=== PATIENT | male | born 1950 | race Caucasian/White ===

== ENCOUNTER 2017-05-27 03:27 | Observation (INO) | payer OTHER ==
[2017-05-27] MEDS ORDERED: ONDANSETRON 4 MG/2 ML VIAL IVP ONE ×2 (03:34→03:47)
[2017-05-27] MEDS ORDERED: NS 1,000 ML IV ONE (03:40)
--- NOTE | 2017-05-27 03:40 | EDPHY ---
H & P Stated Complaint: abd pain onset 23:00 yesterday, n/v HPI/ROS: HPI CHIEF COMPLAINT: Abdominal pain HISTORY OF PRESENT ILLNESS: This patient is a very pleasant 67-year-old male, takes cholesterol medication, he presents emergency room with abdominal pain. He states around 11:00 p.m. and midnight he developed some left-sided back pain that radiates down to his left flank. Into his left lower quadrant region. He had so she had nausea with no vomiting. Denies fever. Denies chest pain or shortness of breath. Pain is rather constant located in the left lower quadrant. At times it comes from the flank. It waxes and wanes. Describes somewhat sharp. Denies any urinary symptoms. Past Medical History: Hyperlipidemia. Past Surgical History: Denies any recent surgery Social History: Denies daily use drugs alcohol tobacco products. Family History: Noncontributory. ROS REVIEW OF SYSTEMS: A comprehensive 10 point review of systems is otherwise negative aside from elements mentioned in the history of present illness. Exam Constitutional appears well nontoxic, triage nursing summary reviewed, vital signs reviewed, awake/alert. Noted to be hypertensive at triage. Eyes normal conjunctivae and sclera, EOMI, PERRLA. HENT normal inspection, atraumatic, moist mucus membranes, no epistaxis, neck supple/ no meningismus, no raccoon eyes. Respiratory clear to auscultation bilaterally, normal breath sounds, no respiratory distress, no wheezing. Cardiovascular rate normal, regular rhythm, no murmur, no edema, distal pulses normal. Gastrointestinal protuberant abdomen, soft, tender palpation focally left lower quadrant, no rebound, no guarding, normal bowel sounds, no distension, no pulsatile mass. Genitourinary no CVA tenderness. Musculoskeletal no midline vertebral tenderness, full range of motion, no calf swelling, no tenderness of extremities, no meningismus, good pulses, neurovascularly intact. Skin pink, warm, & dry, no rash, skin atraumatic. Neurologic awake, alert and oriented x 3, AAOx3, moves all 4 extremities equally, motor intact, sensory intact, CN II-XII intact, normal cerebellar, normal vision, normal speech. Psychiatric normal mood/affect. Heme/Lymph/Immune no lymphadenopathy. Differential diagnosis includes but is not limited to and in no particular order : Bowel obstruction, appendicitis, gallbladder disease, diverticulitis, colitis , enteritis, perforated viscus, gastritis, GERD, esophagitis, urinary tract infection, pyelonephritis, kidney stones Medical Decision Making: Plan for this patient IV establishment, with IV fluid bolus, Dilaudid 1 mg for pain control, IV Zofran for nausea, abdominal blood work including lactic acid, CT scan abdomen pelvis with IV contrast to help delineate acute left lower quadrant abdominal pain. It is possible this is stone versus colitis versus diverticulitis. No pulsatile mass or bruit on exam. Doubt ruptured AAA. Re-evaluation: ED CT scan abdomen pelvis with IV contrast this shows a 7 mm obstructing stone at the L3. Hydronephrosis present. 0512: Patient does ongoing left flank pain. He does not feel comfortable going home. Given how big is stone is with hydronephrosis obstructing is ureter will be admitted to the hospitalist service for obstructing left-sided kidney stone. He does not feel comfortable going home. Will admit to the medicine service. 0535: Dr. Agee with Urology consult. Recommends and p.o.. They will see and evaluate the patient. Source: Patient - Personal History Current Tetanus/Diphtheria Vaccine: Yes - Medical/Surgical History Hx Asthma: No Hx Chronic Respiratory Disease: No Hx Diabetes: No Hx Cardiac Disease: No Hx Renal Disease: No Hx Cirrhosis: No Hx Alcoholism: No Hx HIV/AIDS: No Hx Splenectomy or Spleen Trauma: No Other PMH: PMHx: high cholesterol, arthritis. PSHx: denies - Social History Smoking Status: Never smoked Constitutional: Initial Vital Signs Temperature (C) 36.5 C 05/27/17 03:29 Heart Rate 70 05/27/17 03:29 Respiratory Rate 17 05/27/17 03:29 Blood Pressure 209/113 H 05/27/17 03:29 O2 Sat (%) 94 05/27/17 03:29 O2 Delivery Mode Room Air O2 (L/minute) 2 Allergies/Adverse Reactions: No Known Allergies Allergy (Unverified 05/27/17 03:29) Home Medications: Medication Instructions Recorded Crestor 05/27/17 Medical Decision Making - Data Points Laboratory Results: Laboratory Results 05/27/17 03:50 05/27/17 03:50 05/27/17 05/27/17 05/27/17 04:30 03:50 03:50 WBC RBC Hgb Hct MCV MCH MCHC RDW Plt Count MPV Neut % (Auto) Lymph % (Auto) [place] % (Auto) Eos % (Auto) Baso % (Auto) Nucleat RBC Rel Count Absolute Neuts (auto) Absolute Lymphs (auto) Absolute Monos (auto) Absolute Eos (auto) Absolute Basos (auto) Absolute Nucleated RBC Immature Gran % Immature Gran # PT 12.8 SEC SEC (12.0-15.0) INR 0.97 (0.83-1.16) APTT 24.6 SEC SEC (23.0-38.0) VBG Lactic Acid 1.5 mmol/L mmol/L (0.7-2.1) Sodium Potassium Chloride Carbon Dioxide Anion Gap BUN Creatinine Estimated GFR Glucose Calcium Total Bilirubin Conjugated Bilirubin Unconjugated Bilirubin AST ALT Alkaline Phosphatase Total Protein Albumin Lipase Urine Color YELLOW Urine Appearance CLEAR Urine pH 5.0 (5.0-7.5) Ur Specific Maud 1.017 (1.002-1.030) Urine Protein NEGATIVE (NEGATIVE) Urine Ketones NEGATIVE (NEGATIVE) Urine Blood 3+ H (NEGATIVE) Urine Nitrate NEGATIVE (NEGATIVE) Urine Bilirubin NEGATIVE (NEGATIVE) Urine Urobilinogen NEGATIVE EU EU (0.2-1.0) Ur Leukocyte Esterase NEGATIVE (NEGATIVE) Urine RBC 50-182 /hpf H /hpf (0-3) Urine WBC 1-3 /hpf /hpf (0-3) Ur Epithelial Cells NONE SEEN /lpf /lpf (NONE-1+) Urine Mucus TRACE /lpf /lpf (NONE-1+) Urine Glucose NEGATIVE (NEGATIVE) 05/27/17 05/27/17 03:50 03:50 WBC 7.56 10^3/uL 10^3/uL (3.80-9.50) RBC 5.25 10^6/uL 10^6/uL (4.40-6.38) Hgb 16.0 g/dL g/dL (13.7-17.5) Hct 46.0 % % (40.0-51.0) MCV 87.6 fL fL (81.5-99.8) MCH 30.5 pg pg (27.9-34.1) MCHC 34.8 g/dL g/dL (32.4-36.7) RDW 13.2 % % (11.5-15.2) Plt Count 198 10^3/uL 10^3/uL (150-400) MPV 11.8 fL H fL (8.7-11.7) Neut % (Auto) 53.2 % % (39.3-74.2) Lymph % (Auto) 33.5 % % (15.0-45.0) [place] % (Auto) 8.1 % % (4.5-13.0) Eos % (Auto) 4.1 % % (0.6-7.6) Baso % (Auto) 0.8 % % (0.3-1.7) Nucleat RBC Rel Count 0.0 % % (0.0-0.2) Absolute Neuts (auto) 4.03 10^3/uL 10^3/uL (1.70-6.50) Absolute Lymphs (auto) 2.53 10^3/uL 10^3/uL (1.00-3.00) Absolute Monos (auto) 0.61 10^3/uL 10^3/uL (0.30-0.80) Absolute Eos (auto) 0.31 10^3/uL 10^3/uL (0.03-0.40) Absolute Basos (auto) 0.06 10^3/uL 10^3/uL (0.02-0.10) Absolute Nucleated RBC 0.00 10^3/uL 10^3/uL (0-0.01) Immature Gran % 0.3 % % (0.0-1.1) Immature Gran # 0.02 10^3/uL 10^3/uL (0.00-0.10) PT INR APTT VBG Lactic Acid Sodium 134 mEq/L mEq/L (134-144) Potassium 3.8 mEq/L mEq/L (3.5-5.2) Chloride 106 mEq/L mEq/L (97-110) Carbon Dioxide 23 mEq/l mEq/l (22-31) Anion Gap 5 mEq/L L mEq/L (8-16) BUN 22 mg/dL mg/dL (7-23) Creatinine 1.2 mg/dL mg/dL (0.7-1.3) Estimated GFR > 60 Glucose 102 mg/dL H mg/dL (70-100) Calcium 9.7 mg/dL mg/dL (8.5-10.4) Total Bilirubin 0.4 mg/dL mg/dL (0.1-1.4) Conjugated Bilirubin 0.1 mg/dL mg/dL (0.0-0.5) Unconjugated Bilirubin 0.3 mg/dL mg/dL (0.0-1.1) AST 30 IU/L IU/L (17-59) ALT 54 IU/L IU/L (21-72) Alkaline Phosphatase 66 IU/L IU/L (38-126) Total Protein 6.5 g/dL g/dL (6.3-8.2) Albumin 4.3 g/dL g/dL (3.5-5.0) Lipase 792 IU/L H IU/L (23-300) Urine Color Urine Appearance Urine pH Ur Specific Maud Urine Protein Urine Ketones Urine Blood Urine Nitrate Urine Bilirubin Urine Urobilinogen Ur Leukocyte Esterase Urine RBC Urine WBC Ur Epithelial Cells Urine Mucus Urine Glucose Medications Given: Promethazine HCl (Phenergan) 6.25 mg IVP Q6HRS PRN PRN Reason: Nausea/Vomiting, Can't Take PO Stop: 11/23/17 04:45 Last Admin: 05/27/17 04:51 Dose: 6.25 mg Discontinued Medications Hydromorphone HCl (Dilaudid) 1 mg IVP EDNOW ONE Stop: 05/27/17 03:49 Last Admin: 05/27/17 03:51 Dose: 1 mg Sodium Chloride (Ns) 1,000 mls @ 0 mls/hr IV EDNOW ONE; Wide Open PRN Reason: Protocol Stop: 05/27/17 03:41 Last Admin: 05/27/17 03:51 Dose: 1,000 mls Ketorolac Tromethamine (Toradol) 15 mg IVP EDNOW ONE Stop: 05/27/17 04:47 Last Admin: 05/27/17 04:49 Dose: 15 mg Ondansetron HCl (Zofran) 4 mg IVP EDNOW ONE Stop: 05/27/17 03:35 Last Admin: 05/27/17 03:51 Dose: 4 mg Departure - Departure Disposition: Home, Routine, Self-Care Clinical Impression: Flank pain, Kidney stone on left side Condition: Good
[2017-05-27] MEDS ORDERED: HYDROmorphONE/DILAUDID 1 MG/ML INJ IVP ONE ×2 (03:47→03:48)
[2017-05-27] MEDS ORDERED: IOPAMIDOL (ISOVUE-300) 100 ML BTL ONE (04:00)
[2017-05-27 04:03] LABS: % IMMATURE GRANULYOCYTES 0.3 % (0.0-1.1); ABSOLUTE IMMATURE GRANULOCYTES 0.02 10^3/uL (0.00-0.10); ADD DIFF? NO; ADD MORPH? NO; ADD SCAN? NO; ATYPICAL LYMPHOCYTE FLAG 10 (0-99); FRAGMENT RBC FLAG 0 (0-99); LEFT SHIFT FLG 0 (0-99); LIPEMIA HEMOLYSIS FLAG 90 (0-99); MEAN CELL HEMOGLOBIN 30.5 pg (27.9-34.1); MEAN CELL HEMOGLOBIN CONCENTR. 34.8 g/dL (32.4-36.7); MEAN CELL VOLUME 87.6 fL (81.5-99.8); MEAN PLATELET VOLUME 11.8 fL (8.7-11.7); PLATELET CLUMPS FLAG 0 (0-99); PLATELET COUNT 198 10^3/uL (150-400); RED BLOOD CELL COUNT 5.25 10^6/uL (4.40-6.38); RED CELL DISTRIBUTION WIDTH 13.2 % (11.5-15.2)
[2017-05-27 04:13] LABS: INR 0.97 (0.83-1.16); PROTIME(PATIENT) 12.8 SEC (12.0-15.0)
[2017-05-27 04:14] LABS: APTT 24.6 SEC (23.0-38.0)
[2017-05-27 04:17] LABS: ALANINE AMINOTRANSFERASE 54 IU/L (21-72); ALBUMIN 4.3 g/dL (3.5-5.0); ALKALINE PHOSPHATASE 66 IU/L (38-126); ASPARTATE AMINOTRANSFERASE 30 IU/L (17-59); BILIRUBIN,TOTAL 0.4 mg/dL (0.1-1.4); BILIRUBIN-CONJUGATED 0.1 mg/dL (0.0-0.5); BILIRUBIN-UNCONJUGATED 0.3 mg/dL (0.0-1.1); CALCIUM 9.7 mg/dL (8.5-10.4); CARBON DIOXIDE 23 mEq/l (22-31); CHLORIDE 106 mEq/L (97-110); CREATININE 1.2 mg/dL (0.7-1.3); GLOMERULAR FILTRATION RATE > 60; GLUCOSE 102 mg/dL (70-100); POTASSIUM 3.8 mEq/L (3.5-5.2); TOTAL PROTEIN 6.5 g/dL (6.3-8.2)
[2017-05-27 04:41] LABS: COLOR YELLOW; LEUKOCYTE ESTERASE,URINE NEGATIVE (NEGATIVE); NITRITE,URINE NEGATIVE (NEGATIVE)
[2017-05-27] MEDS ORDERED: PROMETHAZINE HCL 25 MG/ML INJ ONE (04:45)
[2017-05-27] MEDS ORDERED: KETOROLAC 15 MG/1 ML SDV IVP ONE (04:46)
[2017-05-27] MEDS ORDERED: PROMETHAZINE HCL 25 MG/ML INJ IVP PRN (04:46)
[2017-05-27] MEDS ORDERED: KETOROLAC 15 MG/1 ML SDV ONE (04:46)
[2017-05-27 04:49] LABS: MUCUS TRACE /lpf (NONE-1+); RBC,URINE 50-182 /hpf (0-3)
[2017-05-27] MEDS ORDERED: ACETAMINOPHEN 325 MG TAB PO PRN (05:27)
[2017-05-27] MEDS ORDERED: ONDANSETRON 4 MG/2 ML VIAL IVP PRN ×2 (05:27→19:00)
[2017-05-27] MEDS ORDERED: LORazepam 2 MG/ML INJ IVP PRN (05:27)
[2017-05-27] MEDS: NS 1,000 ML IV SCH ×2 (06:38→20:39)
--- NOTE | 2017-05-27 07:30 | GHP ---
[f rep st] HISTORY AND PHYSICAL DATE OF ADMISSION: 05/27/2017 SOURCE: Patient provides history, appears reliable. Electronic medical record was reviewed and case discussed with ED provider. CHIEF COMPLAINT: Flank and abdominal pain. HISTORY OF PRESENT ILLNESS: This is a very pleasant 67-year-old gentleman with past medical history significant for hypertension, obesity, who presents to emergency department today with sudden onset o f left lower quadrant abdominal pain with radiation to the left flank. Patient reports that symptoms began approximately at 11 p.m., while he was still awake. He had sharp stabbing pain that was persi stent. It was worse with lying down, improved with standing. The patient also reports some associat ed nausea with vomiting. No hematemesis. Patient denies any fevers, chills, shortness of breath, ch est pain, or diarrhea. The patient denies any hematuria or dysuria. No previous history of kidney st ones. REVIEW OF SYSTEMS: GENERAL: Patient denies any fevers, chills. SKIN: No rashes, sores. ENT: Pat ient denies any congestion, sore throat. EYES: No acute changes in vision. Does wear glasses. CV: No chest pain, palpitations. RESPIRATORY: No shortness of breath or cough. GI: Abdominal pain a s noted per HPI. : As per HPI. MUSCULOSKELETAL: Patient denies any joint pain or myalgias. UMM RO: Patient denies any headache, numbness, tingling, or weakness. Remainder of review of systems negative except as noted above. ALLERGIES: No known drug allergies. HOME MEDICATIONS: Crestor, dosing unknown. PAST MEDICAL HISTORY: Significant for hyperlipidemia and obesity. PAST SURGICAL HISTORY: Patient denies any previous procedures. FAMILY HISTORY: Significant for kidney stones. Otherwise, no other medical issues and patient denie s any diabetes or hypertension. SOCIAL HISTORY: Patient lives with his . He does not smoke or use illicit drugs. The patient d oes drink wine, approximately 2-3 glasses on a daily basis. CODE STATUS: Full. He does have advanced directives and who is MDPOA. PHYSICAL EXAM: VITAL SIGNS: Upon arrival, blood pressure 209/113, heart rate 70, respiratory rate 1 7, O2 saturation is 94% on room air, temperature 36.5. Current vital signs: Blood pressure 112/72, heart rate is 65, O2 saturation 97% on room air. GENERAL: No acute distress, pleasant, obese gentle man is lying quietly in bed, appears slightly older than stated age, and lays quite still. HEAD: No rmocephalic, atraumatic. EYES: Extraocular muscles grossly intact. No scleral icterus, conjunctiva l injection. Pupils equal, round, reactive to light bilaterally and symmetric. No scleral icterus o r conjunctival injection. ENT: Mucous membranes appear slightly dry. No oropharyngeal erythema or exudates. NECK: Supple. Trachea midline. CV: Regular rate and rhythm. Slightly bradycardic in t he 60s. No murmurs, rubs, or gallops appreciated. RESPIRATORY: Lungs are clear to auscultation maris aterally. No wheezes, rales, or rhonchi. Unlabored breathing. ABDOMEN: Obese. Positive bowel christie nds. Soft. Patient does have tenderness to palpation in the left lower quadrant without any rebound or guarding appreciated. : No suprapubic tenderness to palpation. No Parra catheter in place. EXTREMITIES: Strength grossly intact. Moves all extremities, but again patient tries to keep his ab domen quite still during exam. NEURO: Grossly nonfocal. No facial drooping. Moves all extremities . PSYCH: Thought process content and questions are all appropriate. Affect is slightly flat. LABORATORY STUDIES: WBC 7.56, H and H 16.0 and 46.0, MCV 87.6, platelet count is 198, no bands. PT is 12.8, INR 0.97, PTT is 24.6. Lactic acid 1.5. Sodium is 134, potassium 3.8, chloride 106, CO2 is 23, anion gap 5, BUN 22, creatinine 1.2. GFR grea ter than 60, glucose 102, calcium is 9.7, total bilirubin 0.4, ALT 54, AST is 30, alkaline phosphatas e is 66, total protein is 6.5, albumin is 4.3, lipase is 792. UA with specific gravity 1.017, pH of 5.0, 3+ blood, RBCs 50-180, trace mucus, no bacteria noted. IMAGING: Preliminary report reviewed myself and limited images available for review. Significant fo r 7 mm left ureteral calculus associated with hydro. ASSESSMENT AND PLAN: Pleasant 67-year-old gentleman presents with left lower quadrant abdominal pain radiating to his flank. 1. Ureterolithiasis with obstruction. The patient has received Dilaudid and Toradol in the emergenc y department with improvement in his pain. He does try to lay quite still. Dr. Agee with Urology was consulted from the emergency department and will evaluate the patient for a stent. He has reque sted patient to be made n.p.o., which he already is. 2. Hydronephrosis. Plan as noted above. 3. Flank pain. Pain controlled p.r.n., morphine will be available. 4. Nausea and vomiting. This has resolved after Zofran. This will also be available p.r.n. 5. Elevated blood pressure upon arrival without history of hypertension. Blood pressures at this ti me are normotensive, and this is likely secondary to patient's acute pain that is now well controlled . 6. Elevated lipase is less than 3 times upper limit of normal. This likely is related to patient's episodes of nausea and vomiting. We will continue to monitor clinically. His nausea and vomiting vance ve resolved. 7. Obesity with a body mass index of 35.2. Lifestyle modifications being recommended. 8. Fluid, electrolyte, nutrition. Patient will be made n.p.o. We will continue some intravenous fl uids for gentle hydration. While patient is n.p.o., he has received a liter of intravenous fluids in the emergency department already. Electrolytes will be monitored and replaced if needed. 9. Prophylaxis. Sequential compression devices, holding anticoagulation in setting of anticipated p rocedure. 10. Code status is full. Patient with advanced directives and his is medical durable power of deputy county attorney if needed. 11. Disposition. Patient is being admitted to observation on the med/surg floor pending further rec ommendations from Urology. Anticipate less than 48 hours stay and possible discharge later today, as recommended by Urology after their assessment. /[id number]/MODL
--- NOTE | 2017-05-27 07:40 | PDCONSULT ---
[employer] Note: Full consult to follow. Pt admitted with 7mm left mid ureteral stone, intractable pain, vomiting. Plan for ureteroscopy, laser, stent today if patient agreeable. Currently on OR schedule for 5pm. Keep NPO.
--- NOTE | 2017-05-27 09:53 | HOSPPROG ---
Hospitalist Progress Note Assessment/Plan: Patient is a 67 y/o male who presented to the ER with sudden onset of lower abdominal pain radiating to he left flank area/ Today is my first encounter, chart reviewed. *7 mm left mid ureteral stone patient was evaluated by Dr Agee will await and see how he does today doubtful he will pass the stone *Hydronephrosis due to the above *HLD statin *n & v due to the above *HTN likely due to the above *elevated lipase will recheck *Morbid obesity w a BMI of 35 *Plan: will re-evaluate this afternoon to see if he has passed the stone Subjective: says his pain is better this morning. Objective: Vital Signs Temp Pulse Resp BP Pulse Ox 37.3 C 61 14 131/83 H 96 05/27/17 08:00 05/27/17 08:00 05/27/17 08:00 05/27/17 08:00 05/27/17 08:00 05/26/17 05/27/17 05/28/17 05:59 05:59 05:59 Intake Total 1000 Balance 1000 PT 12.8 SEC (12.0-15.0) 05/27/17 03:50 INR 0.97 (0.83-1.16) 05/27/17 03:50 - Physical Exam Constitutional: not in pain, obese Eyes: PERRL Ears, Nose, Mouth, Throat: hearing normal Cardiovascular: regular rate and rhythym Respiratory: no respiratory distress Gastrointestinal: normoactive bowel sounds Skin: warm Musculoskeletal: full muscle strength Neurologic: AAOx3 Psychiatric: interacting appropriately ICD10 Worksheet Patient Problems: Problems Problem Status Onset Flank pain Acute Kidney stone on left side Acute
[2017-05-27] MEDS: TAMSULOSIN HCL 0.4 MG CAP PO SCH (12:04)
--- NOTE | 2017-05-27 13:21 | SOAPPROG ---
SOAP Progress Note Assessment/Plan: Assessment: Large left proximal ureteral calculus - stable at this time. Plan: Proceed with ureteroscopy, laser lithotripsy, and stent placement later this afternoon. Continue NPO, urine straining, IVF's, etc. Flomax started earlier today. (consult dict. # [id number]) Objective: Vital Signs Temp Pulse Resp BP Pulse Ox 36.9 C 63 16 138/81 H 92 05/27/17 12:00 05/27/17 12:00 05/27/17 12:00 05/27/17 12:00 05/27/17 12:00 05/26/17 05/27/17 05/28/17 05:59 05:59 05:59 Intake Total 1000 Balance 1000 PT 12.8 SEC (12.0-15.0) 05/27/17 03:50 INR 0.97 (0.83-1.16) 05/27/17 03:50 ICD10 Worksheet Patient Problems: Problems Problem Status Onset Flank pain Acute Kidney stone on left side Acute
[2017-05-27] MEDS ORDERED: MIDAZOLAM 2 MG/2 ML VIAL IVP ONE (17:00)
[2017-05-27] MEDS ORDERED: levOFLOXACIN 500 MG/DEXTROSE 100 ML IV ONE (17:00)
[2017-05-27] MEDS ORDERED: IOPAMIDOL (ISOVUE-M 300) 15 ML VIAL ONE ×3 (17:00→18:17)
--- NOTE | 2017-05-27 17:02 | PDANEPAE ---
ANE History of Present Illness left ureteral stone ANE Past Medical History - Cardiovascular History Hx Hypertension: No Hx Arrhythmias: No Hx Chest Pain: No Hx Coronary Artery / Peripheral Vascular Disease: No Hx CHF / Valvular Disease: No Hx Palpitations: No - Pulmonary History Hx COPD: No Hx Asthma/Reactive Airway Disease: No Hx Recent Upper Respiratory Infection: No Hx Oxygen in Use at Home: No Hx Sleep Apnea: Yes Sleep Apnea Screening Result - Last Documented: Positive - Endocrine History Hx Diabetes: No Hypothyroid: No Hyperthyroid: No Obesity: yes - Chronic Pain History Chronic Pain: No ANE Review of Systems Review of systems is: negative Review of Systems: - Exercise capacity Exercise capacity: >=4 METS ANE Patient History - Allergies Allergies/Adverse Reactions: No Known Allergies Allergy (Unverified 05/27/17 03:29) - Home Medications Home medications: home medication list seen and reviewed Home Medications: Herbals/Supplements -Info Only 1 ea PO DAILY 05/27/17 [Last Taken 05/26/17] Ibuprofen [Motrin (*)] 400 mg PO DAILY 05/27/17 [Last Taken 05/26/17] Rosuvastatin Calcium [Crestor 40mg (*)] 40 mg PO DAILY 05/27/17 [Last Taken ] Vitamin B Complex [B Complex] 1 each PO DAILY 05/27/17 [Last Taken 05/26/17] - NPO status NPO Since - Liquids (Date): 05/27/17 NPO Since - Liquids (Time): 02:00 NPO Since - Solids (Date): 05/26/17 NPO Since - Solids (Time): 23:00 - Anes Hx Anes Hx: no prior problems - Smoking Hx Smoking Status: Never smoked ANE Labs/Vital Signs - Labs Result Diagrams: 05/27/17 03:50 05/27/17 03:50 - Vital Signs Blood Pressure: 144/73 Heart Rate: 64 Respiratory Rate: 16 O2 Sat (%): 93 Height: 170.18 cm Weight: 104.1 kg ANE Physical Exam - Airway Neck exam: FROM Mallampati Score: Class 2 Mouth exam: normal dental/mouth exam - Pulmonary Pulmonary: no respiratory distress - Cardiovascular Cardiovascular: regular rate and rhythym - ASA Status ASA Status: II ANE Anesthesia Plan Anesthesia Plan: general endotracheal anesthesia Specialized Airway: video laryngoscope
[2017-05-27] MEDS ORDERED: LIDOCAINE 2% 5 ML SDV ONE (17:06)
[2017-05-27] MEDS ORDERED: PROPOFOL 200 MG/20 ML VIAL ONE ×2 (17:06)
[2017-05-27] MEDS ORDERED: DEXAMETHASONE 4 MG/ML VIAL ONE (17:06)
[2017-05-27] MEDS ORDERED: fentaNYL 100 MCG/2 ML INJ ONE ×3 (17:10→19:50)
--- NOTE | 2017-05-27 17:38 | GCON ---
[f rep st] CONSULTATION DATE OF CONSULTATION: 05/27/2017 PHYSICIAN REQUESTING CONSULTATION: Hospitalist service. REASON FOR CONSULTATION: Symptomatic left ureteral calculus. HISTORY: This is a 67-year-old gentleman, who started experiencing fairly acute onset of left-sided abdominal and flank pain yesterday evening about 11 p.m. The symptoms waxed and waned but became mor e severe to the point that he presented to the emergency room early this morning. He was also experi encing nausea with emesis. He was given supportive care in the emergency room and also underwent a C T scan which revealed a sizable left proximal ureteral calculus. The patient was subsequently admitt ed for further management. Since admission, he has felt much better but has continued to have interm ittent episodes of milder left-sided flank pain. He denies any associated fevers, flu-like symptoms, dysuria, gross hematuria, urinary tract infections, or prior history of nephrolithiasis. PAST MEDICAL HISTORY: Notable for hyperlipidemia. PAST SURGICAL HISTORY: Knee arthroscopy, eye surgery as a child. ADMISSION MEDICATIONS: Crestor. MEDICAL ALLERGIES: None known. FAMILY HISTORY: No kidney stones to his knowledge. SOCIAL HISTORY: The patient is and lives in the [facility]. He denies use of tobacco prod ucts or illicit drugs. He does drink roughly 2 glasses of wine daily. REVIEW OF SYSTEMS: Unremarkable, other than mentioned above in the HPI and Past Medical History. PHYSICAL EXAM: GENERAL: Obese well-developed well-nourished white male, lying supine in bed in no a cute distress presently. VITAL SIGNS: Blood pressure 138/81, pulse 63, respirations 16, oxygen satu ration 92% on room air, temperature 36.9 Celsius. Height 170 cm, weight 104 kg, BMI 36. HEENT: Nor mocephalic, atraumatic. NECK: Supple. HEART: Regular rate. CHEST: Unlabored respiratory pattern . ABDOMEN: Obesity is noted. Soft without palpable masses. No obvious organomegaly. BACK: No CV A tenderness. GENITALIA: Normal circumcised phallus with an appropriate meatus in the proper positi on. Scrotal structures are normal. EXTREMITIES: Warm without cyanosis, clubbing, or edema. VASCUL AR: Normal femoral, dorsalis pedis, and posterior tibial pulses bilaterally. NEUROLOGIC: He is brandon rt and oriented. He answers all questions appropriately with normal mood and affect. RADIOGRAPHIC STUDIES: Iodinated abdominopelvic CT scan today: Upon my review, notable for a solitar y punctate right mid pole renal calculus. There is mild left hydronephrosis and hydroureter down to a 6.5 x 6.5 x 8.5 mm long proximal ureteral calculus at L3. LABORATORY: CBC today is normal. INR is normal. Chemistry panel notable for creatinine 1.2, calciu m 9.7, normal CMP otherwise (with the exception of lipase 792). Urinalysis notable for 50 to 182 red blood cells per high-power field but otherwise unremarkable. IMPRESSION: Symptomatic left proximal ureteral calculus. Management options were reviewed in detail with the patient today. Given and taking into consideration the size and present location of his ca lculus, likelihood of spontaneous passage is approximately 10%. Surgical management options were rev iewed in detail as well and all questions regarding this were discussed. PLAN: 1. Continue medical management today. 2. Proceed with intraoperative left-sided ureteroscopy and calculus management with ureteral stent rex [place] later this afternoon. Thank you for this consultation. /[id number]/MODL
[2017-05-27] MEDS ORDERED: SUGAMMADEX SODIUM 200 MG/2 ML VIAL IVP ONE (17:50)
[2017-05-27] MEDS ORDERED: ONDANSETRON 4 MG/2 ML VIAL ONE (17:50)
[2017-05-27 18:21] LABS: ANION GAP 17 mEq/L (8-16); SODIUM 146 mEq/L (134-144)
[2017-05-27] MEDS ORDERED: LIDOCAINE 2% JELLY 20 ML (UROJECT) ONE (18:40)
[2017-05-27] MEDS ORDERED: KETOROLAC 30 MG/1 ML SDV ONE (18:40)
--- NOTE | 2017-05-27 18:53 | POSTOPPROG ---
Post Op Note Date of Operation: 05/27/17 Surgeon: Anneliese Driver (# [id number]) Anesthesia: GET(General Endotracheal) Pre-op Diagnosis: Left proximal ureteral calculus Post-op Diagnosis: Left proximal ureteral calculus Findings: See op note Inf/Abcess present in the surg proc area at time of surgery?: No EBL: Minimal (< 10 cc) Drains: Other (4.7 Fr. x 24 cm left ureteral stent) Specimen(s): None Text Box - Additional Text Additional Text: He should be ready for discharge in AM. I have Rx's on chart for [place] prn pain & Uribel which he should both begin following discharge. He will need to FU in my office in 2 weeks for ureteral stent removal.
[2017-05-27] MEDS ORDERED: HYDROmorphONE/DILAUDID 1 MG/ML INJ IVP PRN (19:00)
[2017-05-27] MEDS ORDERED: ACETAMINOPHEN 500 MG TAB PO PRN (19:00)
[2017-05-27] MEDS ORDERED: ALBUTEROL 3 ML DEYVIAL IH PRN (19:00)
[2017-05-27] MEDS ORDERED: OXYCODONE/APAP 5/325 TAB PO PRN (19:00)
[2017-05-27] MEDS ORDERED: LR 500 ML IV PRN (19:00)
[2017-05-27] MEDS ORDERED: fentaNYL 100 MCG/2 ML INJ IVP PRN (19:00)
[2017-05-27] MEDS ORDERED: NALOXONE HCL 0.4 MG/ML INJ IVP PRN (19:00)
--- NOTE | 2017-05-27 19:00 | POSTANESTH ---
Post Anesthetic Evaluation Cardiovascular Status: Normal, Stable Respiratory Status: Normal, Stable Level of Consciousness/Mental Status: Can Participate in Eval Pain Control: Adequate, Prn Tx Ordered Nausea/Vomiting Control: Adequate, Prn Tx Ordered Complications Possibly Related to Anesthesia: None Noted
[2017-05-27] MEDS ORDERED: PHENAZOPYRIDINE HCL 200 MG TAB ONE (19:18)
[2017-05-27] MEDS: PHENAZOPYRIDINE HCL 200 MG TAB PO SCH ×2 (19:20→21:13)
--- NOTE | 2017-05-27 20:19 | GOP ---
[f rep st] OPERATIVE REPORT DATE OF OPERATION: 05/27/2017 SURGEON: Anneliese Driver MD ANESTHESIA: General endotracheal. PREOPERATIVE DIAGNOSIS: Symptomatic left proximal ureteral calculus. POSTOPERATIVE DIAGNOSIS: Symptomatic left proximal ureteral calculus. PROCEDURE PERFORMED: 1. Cystourethroscopy, left retrograde pyelography. 2. Left ureteroscopy and nephroscopy with holmium laser calculus lithotripsy. 3. Left ureteral stent placement (4.7-Hong Konger x 24 cm). FINDINGS: Left proximal ureteral calculus, sitting in the same position as noted on preoperative CT imaging. SPECIMENS: None. ESTIMATED BLOOD LOSS: Minimal. INDICATIONS: This gentleman was admitted with symptoms related to a large left proximal ureteral marty culus. He has opted to undergo surgical management at this time. The indications for the procedures as well as potential risks and complications were discussed with the patient preoperatively. He buster eared to understand, his questions were answered, and he wished to proceed. Written informed surgica l consent was thereafter obtained. DESCRIPTION OF PROCEDURE: The patient was brought to the operating room and administered general end otracheal anesthesia. He was carefully placed in the dorsal lithotomy position on the cystoscopic ta ble. The genital area was sterilely prepped with Betadine scrub and paint, and then draped in usual sterile fashion. Cystoscopy was performed with a 30-degree lens through a 22-Hong Konger sheath. Anterio r urethra revealed no abnormalities. Posterior urethra revealed mild BPH. Examination of bladder re vealed [id number] lateral lobe BPH. Examination of bladder revealed mild trabeculations with s ome very fine sub 1 mm calculus fragments. The remainder of the bladder was unremarkable. Ureteral orifices were normal in regard to shape and position along the trigone. 5-Hong Konger open-ended ureteral catheter was utilized to perform retrograde pyelography on the left side . This revealed a sizable filling defect in the proximal left ureter at about L3, just distal to the ureteropelvic junction. There was moderate proximal hydronephrosis and hydroureter. No other intra luminal filling defects were appreciated. I then carefully passed a 0.035-inch hydrophilic angled gu idewire up the left ureter until it was seen within the renal collecting system fluoroscopically. Th e entire length of the ureter distal to the calculus was dilated with 2 separate inflations and defla tions of a 10 cm balloon by maintaining a pressure of 16 atmospheres for about 4 minutes on each occa myke. The balloon dilator and cystoscope were then removed while keeping the guidewire in place. Se mi-rigid ureteroscopy was performed alongside the guidewire. As I reached the proximal ureter, the c alculus migrated proximally without any effort at all into the renal collecting system. I was unable to visualize the calculus at this point. I decided to proceed with a flexible ureteroscopy. Theref ore, a 0.035-inch superstiff Amplatz guidewire was advanced through the ureteroscope, the ureteroscop e was withdrawn, thereby keeping [address]. Under active fluoroscopy, a 55 cm hydrophili c ureteral access sheath was advanced over the Amplatz guidewire until it was in position at the uret eropelvic junction. The inner obturator and Amplatz guidewire were removed, thereby keeping the oute r access sheath and the 2nd guidewire in place. Flexible ureteroscopy was performed through the uret eral access sheath. The calculus was seen within an upper pole calyx. A 200-micron fiber was used t o fragment the calculus into minute pieces, none of which appeared to be larger than approximately 1 mm at the conclusion of the case. I then flushed out some of these calculi into the renal pelvis wit h contrast. The ureteroscope and ureteral access sheath were then removed in tandem while keeping th e guidewire in place. The ureteral mucosa was minimally traumatized as a result of the operative pro cess. The cystoscope was back-loaded over the guidewire and a 4.7-Hong Konger x 24 cm hydrophilic uretera l stent advanced over the guidewire until it was properly positioned and seen fluoroscopically in the kidney and cystoscopically in the bladder. The bladder was then drained of all return which was rel atively clear. The instruments were removed and 20 cc of 2% lidocaine injected transurethrally for p ostoperative analgesia. The patient was also given Toradol 30 mg IV by Anesthesia near the conclusio n of the case. The patient was then awakened, extubated, transferred to his bed, then taken to the r ecovery room. He tolerated the procedure well overall. COMPLICATIONS: None. DISPOSITION: He was transferred to Recovery in stable condition. He should be ready for discharge s ometime tomorrow morning. I will have prescriptions on his chart for [place] p.r.n. pain as well as Ur ibel, the latter which he should begin following discharge. I will have him use Pyridium in the hosp ital until discharge and continue Toradol q.6 hours routinely to help with postoperative analgesia. He will need to return to my office in approximately 2 weeks for ureteral stent removal. /[id number]/MODL
[2017-05-27] MEDS: KETOROLAC 15 MG/1 ML SDV IVP SCH (23:13)
[2017-05-27] MEDS: HYDROCODONE/APAP 5/325 TAB PO PRN (23:17)
[2017-05-28] MEDS: KETOROLAC 15 MG/1 ML SDV IVP SCH ×2 (05:28→12:07)
[2017-05-28] MEDS: NS 1,000 ML IV SCH (05:29)
[2017-05-28] MEDS: HYDROCODONE/APAP 5/325 TAB PO PRN ×2 (05:32→10:03)
[2017-05-28 05:59] LABS: ALANINE AMINOTRANSFERASE 40 IU/L (21-72); ALBUMIN 3.3 g/dL (3.5-5.0); ALKALINE PHOSPHATASE 48 IU/L (38-126); ANION GAP 11 mEq/L (8-16); ASPARTATE AMINOTRANSFERASE 19 IU/L (17-59); BILIRUBIN,TOTAL 0.6 mg/dL (0.1-1.4); CALCIUM 8.7 mg/dL (8.5-10.4); CARBON DIOXIDE 22 mEq/l (22-31); CHLORIDE 108 mEq/L (97-110); CREATININE 1.1 mg/dL (0.7-1.3); GLOMERULAR FILTRATION RATE > 60; GLUCOSE 128 mg/dL (70-100); POTASSIUM 4.8 mEq/L (3.5-5.2); SODIUM 141 mEq/L (134-144); TOTAL PROTEIN 5.4 g/dL (6.3-8.2)
[2017-05-28 07:50] VITALS: BP 102/50; PULSE 64; RESP 14; TEMP 98.2; O2SAT 92
--- NOTE | 2017-05-28 08:19 | HOSPPROG ---
Hospitalist Progress Note Assessment/Plan: Patient is a 67 y/o male who presented to the ER with sudden onset of lower abdominal pain radiating to he left flank area. *7 mm left mid ureteral stone Appreciate Dr. Flores Patient will need to follow up in his office for ureteral stent removal in 2 weeks *Hydronephrosis due to the above *HLD statin *n & v due to the above *HTN likely due to the above *elevated lipase will recheck *Morbid obesity w a BMI of 35 *Plan: DC home Subjective: Patient has some pain in lower abdominal pain but resolves quickly. Objective: Vital Signs Temp Pulse Resp BP Pulse Ox 36.8 C 64 14 102/50 L 92 05/28/17 07:49 05/28/17 07:49 05/28/17 07:49 05/28/17 07:49 05/28/17 07:49 Laboratory Results 05/28/17 04:52 05/27/17 05/28/17 05/29/17 05:59 05:59 05:59 Intake Total 3754 Output Total 655 175 Balance 3099 -175 PT 12.8 SEC (12.0-15.0) 05/27/17 03:50 INR 0.97 (0.83-1.16) 05/27/17 03:50 - Physical Exam Constitutional: no apparent distress, obese, uncomfortable Eyes: PERRL Ears, Nose, Mouth, Throat: hearing normal Respiratory: no respiratory distress Skin: warm, normal color Musculoskeletal: full muscle strength Neurologic: AAOx3 Psychiatric: interacting appropriately ICD10 Worksheet Patient Problems: Problems Problem Status Onset Flank pain Acute Kidney stone on left side Acute
[2017-05-28] MEDS ORDERED: ROSUVASTATIN CALCIUM 40 MG TAB PO SCH (09:00)
[2017-05-28] MEDS ORDERED: VITAMIN B COMPLEX 1 EA CAP/TAB PO SCH (09:00)
[2017-05-28] MEDS: TAMSULOSIN HCL 0.4 MG CAP PO SCH (10:02)
[2017-05-28] MEDS: PHENAZOPYRIDINE HCL 200 MG TAB PO SCH (10:06)
--- NOTE | 2017-05-28 10:06 | GDS ---
[f rep st] DISCHARGE SUMMARY DISCHARGE DIAGNOSES: 1. A 7 mm left mid ureteral stone causing significant pain. 2. Hydronephrosis. 3. Hyperlipidemia. 4. Nausea, vomiting. 5. Hypertension. 6. Elevated lipase. CONSULTATIONS DURING HIS STAY: Dr. Driver and Dr. Agee. BRIEF HISTORY: This patient is a 67-year-old male who started to experience acute onset of left-side d abdominal and flank pain. The symptoms waxed and waned and became more severe to the point he pres ented to the ER for further evaluation. He underwent a CT scan, which revealed a sizable left proxim al ureteral calculus. He was seen and evaluated by Urology and wanted to see if the stone would pass . Unfortunately, this did not occur. He was seen and evaluated by Dr. Driver and on 05/27/2017, he had a cystourethroscopy as well as a lithotripsy and stent placement. He did well with the procedure . He will follow up with Dr. Driver in the outpatient setting. HOSPITAL COURSE: 1. A 7 mm left ureteral stone causing significant pain. He is status post stent and lithotripsy. H e will follow up with Dr. Driver in 2 weeks for stent removal. 2. Hydronephrosis. This is due to the above. Should resolve with the stent. 3. Hyperlipidemia. Statin therapy. Nausea, vomiting resolved. 4. Hypertension. Blood pressure is stable. 5. Elevated lipase. I suspect this is secondary from the nausea and vomiting. DISCHARGE CONDITION: Stable. Blood pressure is 102/50, O2 saturation on room air 92%, respiratory r ate is 14, pulse 64, temperature is 36.8 Celsius. DISCHARGE INSTRUCTIONS: 1. Follow up with Dr. Driver 2 weeks. 2. If he develops fever, chills, worsening abdominal pain, return to the ER. /[id number]/MODL
--- NOTE | 2017-05-28 13:47 | ASDISCHSUM ---
Discharge Information Plan Status:Home with No Needs Medically Cleared to Leave: Discharge Date:05/28/2017 12:30 PM CM D/C Disposition:Home, Routine, Self-Care ADT D/C Disposition:Home, Routine, Self-Care Projected Discharge Date:05/28/2017 12:30 PM Transportation at D/C: Discharge Delay Reason: Follow-Up Date:05/28/2017 12:30 PM Discharge Slot: Final Diagnosis: Placement Information Patient Contact Information Contact Name:ENEIDA Relationship: Address:[address] [place] [address] Work Phone: City:[facility] Phone: [facility]/Zip Code:[place] [address] Email: Financial Information Financial Class:HMO and PPO Plans Primary Plan Desc:HMO [employer] Primary Plan Number:[id number] Secondary Plan Desc: Secondary Plan Number: Assessment Information [facility] CM Progress Note CM Note CM Note Notes: Pt medically stable for d/c, no CM d/c needs identified. Date Signed: 05/28/2017 01:46 PM Electronically Signed By:MADY Marquez Intervention Information
== END 2017-05-28 12:30 | disposition home or self-care (01) ==
LOC: INTOOBSV 05:16 → F3N 06:24
PROVIDERS: ADMIT Family Medicine; ATTEND Internal Medicine
DX: N13.2 Hydronephrosis with renal and ureteral calculous obstruction (principal); E78.5 Hyperlipidemia, unspecified; R11.2 Nausea with vomiting, unspecified; I10 Essential (primary) hypertension; R74.8 Abnormal levels of other serum enzymes; E66.01 Morbid (severe) obesity due to excess calories; Z68.35 Body mass index [BMI] 35.0-35.9, adult
CPT/HCPCS: 52356; 74177; 76001; C1726; C1758; C1769; C1894; G0378; 96374; C2625; J1100; J1170; J1885; J1956; J2250; J2405; J2550; J2704; J3010; Q9967